=== PATIENT | female | born 1980 | race Caucasian/White ===

== ENCOUNTER 2022-04-11 10:13 | Outpatient (CLI) | payer BC, SELFPAY ==
[2022-04-11 15:02] LABS: Chloride* 102 mmol/L (96-114); Potassium* 3.8 mmol/L (3.6-5.1); Sodium* 135 mmol/L (135-149)
[2022-04-11 15:05] LABS: Blood Urea Nitrogen* 12 mg/dL (5-24); Carbon Dioxide* 25 mmol/L (20-32); Cholesterol* 146 mg/dL (90-199); Creatinine* 0.8 mg/dL (0.5-1.5); Estimated Glomerular Filt Rate 94 ml/min
[2022-04-11 15:06] LABS: Calcium* 8.8 mg/dL (8.4-10.6); Glucose* 93 mg/dL (60-115); HDL Cholesterol* 86 mg/dL (>=50); LDL Cholesterol Calculated 35 mg/dL (<100); Triglycerides* 126 mg/dL (40-149)
== END 2022-04-11 10:14 | disposition home or self-care (01) ==
PROVIDERS: PCP Emergency Medicine; Visit Provider Emergency Medicine
DX: Z01.419 Encounter for gynecological examination (general) (routine) without abnormal findings (principal); Z13.6 Encounter for screening for cardiovascular disorders
CPT/HCPCS: 80048; 80061

== ENCOUNTER 2022-07-09 15:25 | Outpatient (CLI) | payer BC, SELFPAY ==
--- NOTE | 2022-07-09 15:40 | CRLHL7_ITS ---
For Patients: As a result of the Century Cures Act, medical imaging exams and procedure reports are released immediately into your electronic medical record. You may view this report before your referring provider. If you have questions, please contact your health care provider. BILATERAL SCREENING MAMMOGRAM WITH COMPUTER-AIDED DETECTION AND TOMOSYNTHESIS TECHNIQUE: CC and MLO views were obtained. These mammographic images have been obtained using full-field digital technique. These mammographic images were interpreted with the benefit of computer-aided detection. Breast Tomosynthesis was used in this interpretation. COMPARISON FILM: 06/28/21, 05/23/20, 04/16/19. FINDINGS: The breasts are heterogeneously dense, which may obscure small masses IMPRESSION: There is no radiographic evidence for malignancy. ASSESSMENT: BI-RADS Category 1: Negative RECOMMENDATION: Routine screening mammogram in 1 year. A lay language report of this examination will be provided to the patient. Marco A Felipe M.D. Diagnostic Radiologist [email or web address] BRENDA/Dictated by: Marco A Felipe MD @ 07/10/2022 10:51:00 AM (Electronically Signed)
== END 2022-07-09 15:26 | disposition home or self-care (01) ==
LOC: MAMMO 15:27
PROVIDERS: PCP Emergency Medicine; Visit Provider Emergency Medicine
DX: Z12.31 Encounter for screening mammogram for malignant neoplasm of breast (principal); R92.2 Inconclusive mammogram
CPT/HCPCS: 77063; 77067

== ENCOUNTER 2022-08-14 08:15 | Outpatient (CLI) | payer BC, SELFPAY ==
[2022-08-14 15:58] LABS: Creatine Kinase* 74 U/L (41-117)
[2022-08-14 15:59] LABS: Magnesium* 2.2 mg/dL (1.5-2.6)
[2022-08-14 16:34] LABS: Ferritin* 23.5 ng/mL (6.24-137.0)
[2022-08-14 16:49] LABS: Vitamin B12* 742 pg/mL (243-894)
== END 2022-08-14 08:16 | disposition home or self-care (01) ==
PROVIDERS: PCP Emergency Medicine; Visit Provider Emergency Medicine
DX: R25.3 Fasciculation (principal)
CPT/HCPCS: 82550; 82607; 82728; 83735; 84443

== ENCOUNTER 2023-06-26 08:50 | Outpatient (CLI) | payer BC, SELFPAY | END 2023-06-26 08:51 | disposition home or self-care (01) | PROVIDERS: PCP Emergency Medicine; Visit Provider Emergency Medicine | DX: Z00.00 Encounter for general adult medical examination without abnormal findings (principal); R79.0 Abnormal level of blood mineral; Z13.1 Encounter for screening for diabetes mellitus; Z13.6 Encounter for screening for cardiovascular disorders | CPT/HCPCS: 80061; 82728; 82947 ==

== ENCOUNTER 2023-07-10 15:27 | Outpatient (CLI) | payer BC, SELFPAY ==
--- NOTE | 2023-07-10 15:40 | CRLHL7_ITS ---
For Patients: As a result of the Century Cures Act, medical imaging exams and procedure reports are released immediately into your electronic medical record. You may view this report before your referring provider. If you have questions, please contact your health care provider. BILATERAL SCREENING MAMMOGRAM WITH COMPUTER-AIDED DETECTION AND TOMOSYNTHESIS TECHNIQUE: CC and MLO views were obtained. These mammographic images have been obtained using full-field digital technique. These mammographic images were interpreted with the benefit of computer-aided detection. Breast Tomosynthesis was used in this interpretation. COMPARISON FILM: 07/09/22, 06/28/21, 05/23/20. FINDINGS: The breasts are heterogeneously dense, which may obscure small masses. IMPRESSION: There is no radiographic evidence for malignancy. ASSESSMENT: BI-RADS Category 1: Negative RECOMMENDATION: Routine screening mammogram in 1 year. A lay language report of this examination will be provided to the patient. Marco A Felipe M.D. Diagnostic Radiologist [email or web address] SP/Dictated by: Marco A Felipe MD @ 07/11/2023 11:06:00 AM (Electronically Signed)
== END 2023-07-10 15:28 | disposition home or self-care (01) ==
LOC: MAMMO 15:28
PROVIDERS: PCP Emergency Medicine; Visit Provider Emergency Medicine
DX: Z12.31 Encounter for screening mammogram for malignant neoplasm of breast (principal); R92.2 Inconclusive mammogram
CPT/HCPCS: 77063; 77067

== ENCOUNTER 2023-10-23 07:51 | Outpatient (CLI) | payer BC, SELFPAY ==
--- NOTE | 2023-10-23 09:30 | W.ANESCHARGE ---
Anesthesia Charges Start Date/Time Anesthesia Start Date: 10/23/23 Anesthesia Start Time: 09:01 Stop Date/Time Anesthesia Stop Date: 10/23/23 Anesthesia Stop Time: 09:27
--- NOTE | 2023-10-23 11:40 | W.ANESCHARGE ---
Anesthesia Charges Start Date/Time Anesthesia Start Date: 10/23/23 Anesthesia Start Time: 09:01 Stop Date/Time Anesthesia Stop Date: 10/23/23 Anesthesia Stop Time: 09:27
== END 2023-10-23 07:52 | disposition home or self-care (01) ==
LOC: OP CLINIC 07:51
PROVIDERS: PCP Emergency Medicine; Visit Provider Surgery
DX: Z12.11 Encounter for screening for malignant neoplasm of colon (principal); K63.5 Polyp of colon
CPT/HCPCS: 00811; 45385; 88305; J2704

== ENCOUNTER 2024-08-04 07:31 | Outpatient (CLI) | payer OTHER, SELFPAY | END 2024-08-04 07:32 | disposition home or self-care (01) | LOC: MAMMO 07:32 | PROVIDERS: PCP Emergency Medicine; Visit Provider Emergency Medicine | DX: Z12.31 Encounter for screening mammogram for malignant neoplasm of breast (principal); R92.333 Mammographic heterogeneous density, bilateral breasts | CPT/HCPCS: 77063; 77067 ==